=== PATIENT | male | born 1950 | race Hispanic/Latino ===

== ENCOUNTER 2020-01-01 08:50 | Inpatient (IN) | payer MEDICARE, OTHER ==
[~2020-01-01] VITALS: Ht 182.9 cm; Wt 94.1 kg
[2020-01-01] MEDS ORDERED: SODIUM CHLORIDE 0.9% 1000ML 1,000 ML IV STA (09:09)
[2020-01-01] MEDS ORDERED: CEFTRIAXONE SOD 1 GM/NS 50 ML 50 ML IV ONE (09:16)
[2020-01-01] MEDS ORDERED: AZITHROMYCIN 500MG/NS 250 ML 250 ML ONE (09:16)
[2020-01-01] MEDS ORDERED: ACETAMINOPHEN 325 MG TAB PO ONE (09:30)
[2020-01-01] MEDS ORDERED: HYDROCODONE/APAP 5MG-325MG TAB PO ONE (09:30)
[2020-01-01 09:56] LABS: BASOPHILS % 0.2 % (0.0-1.0); HEMOGLOBIN 15.1 g/dL (14.0-18.0); LYMPHOCYTES # (AUTO) 0.7 (1.0-3.2); LYMPHOCYTES % 14.5 % (18.0-39.1); MEAN CORPUSCULAR HGB CONC 33.6 g/dL (31-35); MEAN CORPUSCULAR VOLUME 80.4 fL (81-99); MONOCYTES # (AUTO) 0.3 (0.2-0.8); NEUTROPHILS # (AUTO) 3.7 (2.1-6.9); NEUTROPHILS % 77.9 % (38.7-80.0); PLATELET COUNT 153 x10e3/uL (140-360); RED CELL DISTRIBUTION WIDTH 12.8 % (11.7-14.4)
[2020-01-01] MEDS: CEFTRIAXONE SOD 1 GM/NS 50 ML 50 ML IV SCH (10:01)
[2020-01-01] MEDS: AZITHROMYCIN 500MG/NS 250 ML 250 ML IV SCH (10:01)
[2020-01-01 10:13] LABS: ALANINE AMINOTRANSFERASE 30 IU/L (0-55); ALBUMIN 3.2 g/dL (3.5-5.0); ALBUMIN/GLOBULIN RATIO 0.8 (0.8-2.0); ALKALINE PHOSPHATASE 52 IU/L (40-150); BLOOD UREA NITROGEN 13 mg/dL (7-26); BUN/CREATININE RATIO 14 (6-25); CALCIUM 8.8 mg/dL (8.4-10.2); CARBON DIOXIDE 22 mmol/L (22-29); CHLORIDE 96 mmol/L (98-107); CREATINE KINASE 74 IU/L (30-200); CREATININE, SERUM 0.92 mg/dL (0.72-1.25); EST GLOMERULAR FILTRATION RATE > 60 ML/MIN (60-); GLUCOSE 295 mg/dL (74-118); SODIUM 133 mmol/L (136-145)
[2020-01-01 10:14] LABS: INR 0.96; PROTHROMBIN TIME 13.4 seconds (11.9-14.5)
[2020-01-01 10:15] LABS: PARTIAL THROMBOPLASTIN TIME 29.8 seconds (23.8-35.5)
[2020-01-01 10:31] LABS: B-TYPE NATRIURETIC PEPTIDE2 40.3 pg/mL (0-100)
--- NOTE | 2020-01-01 10:33 | Diagnostic Imaging Report ---
EXAMINATION: CHEST SINGLE (PORTABLE) INDICATION: Shortness of breath, chest pressure COMPARISON: None FINDINGS: LINES/TUBES:None LUNGS:Mild bibasilar left greater than right patchy opacities. PLEURA:No pleural effusion or pneumothorax. MEDIASTINUM:The cardiomediastinal silhouette appears at the upper limits of normal for size. Postoperative findings of prior CABG. BONES/SOFT TISSUES:No acute osseous injury. Sternotomy wires in place. ABDOMEN:No free air under the diaphragm. IMPRESSION: Mild bibasilar left greater than right patchy opacities compatible with known history of pneumonia. Signed by: Alejandro Tai MD on 01/01/2020 10:29 AM
--- NOTE | 2020-01-01 14:45 | Emergency Department Note ---
History of Present Illnes History of Present Illness Chief Complaint: COVID PUI History of Present Illness This is a 69 year old male COVID POSITIVE SINCE LAST WK. TODAY WEAK AND SOB AND COUGH AND CHILLS. PT AAOX4. SATS 93 RA. Historian: Dry Wall Finisher/EMS Arrival Mode: [facility] FINANCIAL REPORTING DIRECTOR: See EMS Report Forestry Contractor Required: No Onset (how long ago): week(s) (1) Radiation: Reports non-radiation Severity: moderate Onset quality: gradual Timing of current episode: constant Progression: waxing and waning Chronicity: new Context: Reports recent illness Relieving factors: none Exacerbating factors: none Associated symptoms: Reports denies other symptoms Treatments prior to arrival: none Past Medical/Family History Physician Review I have reviewed the patient's past medical and family history. Any updates have been documented here. Past Medical History Recent Fever: No Clinical Suspicion of Infectio: No New/Unexplained Change in Ment: No Past Medical History: Hypertension, Diabetes Social History Smoking Cessation: Never Smoker Counseling Performed: No Alcohol Use: None Any Illegal Drug Use: No TB Exposure/Symptoms: No Physically hurt or threatened: No Family History Family history of heart diseas: No Other Last Tetanus: U Any Pre-Existing Lines (PICC,: No Last Flu: Y Last Pneumovax: Y Review of Systems Review of Systems Constitutional: Reports fever, Reports malaise EENTM: Reports no symptoms Cardiovascular: Reports no symptoms Respiratory: Reports cough, Reports dyspnea Gastrointestinal: Reports no symptoms Genitourinary: Reports no symptoms Musculoskeletal: Reports no symptoms Integumentary: Reports no symptoms Neurological: Reports no symptoms Psychological: Reports no symptoms Endocrine: Reports no symptoms Hematological/Lymphatic: Reports no symptoms Physical Exam Related Data Allergies: Coded Allergies: No Known Allergies (Unverified , 01/01/20) Triage Vital Signs Vital Signs Date Time Temp Pulse Resp B/P (MAP) Pulse Ox O2 Delivery O2 Flow Rate FiO2 01/01/20 08:51 101.0 105 16 180/88 93 Vital signs reviewed: Yes (O2 sat 93% on RA) Physical Exam CONSTITUTIONAL Constitutional: Present well-developed, Present well-nourished HENT HENT: Present normocephalic, Present atraumatic, Present oropharynx clear/tony st, Present nose normal HENT L/R: Present left ext ear normal, Present right ext ear normal EYES Eyes: Reports PERRL, Reports conjunctivae normal NECK Neck: Present ROM normal PULMONARY Pulmonary: Present effort normal, Present other (decr BS's bilat bases) CARDIOVASCULAR Cardiovascular: Present regular rhythm, Present heart sounds normal, Present capillary refill normal, Present normal rate GASTROINTESTINAL Abdominal: Present soft, Present nontender, Present bowel sounds normal GENITOURINARY Genitourinary: Present exam deferred SKIN Skin: Present warm, Present dry MUSCULOSKELETAL Musculoskeletal: Present ROM normal NEUROLOGICAL Neurological: Present alert, Present oriented x 3, Present no gross motor or sensory deficits PSYCHOLOGICAL Psychological: Present mood/affect normal, Present judgement normal Results Laboratory Result Diagram: 01/01/20 0920 01/01/20 0920 Laboratory Laboratory Tests Test 01/01/20 09:20 White Blood Count 4.69 x10e3/uL (4.8-10.8) Red Blood Count 5.60 x10e6/uL (4.3-5.7) Hemoglobin 15.1 g/dL (14.0-18.0) Hematocrit 45.0 % (38.2-49.6) Mean Corpuscular Volume 80.4 fL (81-99) Mean Corpuscular Hemoglobin 27.0 pg (28-32) Mean Corpuscular Hemoglobin Concent 33.6 g/dL (31-35) Red Cell Distribution Width 12.8 % (11.7-14.4) Platelet Count 153 x10e3/uL (140-360) Neutrophils (%) (Auto) 77.9 % (38.7-80.0) Lymphocytes (%) (Auto) 14.5 % (18.0-39.1) Monocytes (%) (Auto) 7.0 % (4.4-11.3) Eosinophils (%) (Auto) 0.0 % (0.0-6.0) Basophils (%) (Auto) 0.2 % (0.0-1.0) Neutrophils # (Auto) 3.7 (2.1-6.9) Lymphocytes # (Auto) 0.7 (1.0-3.2) Monocytes # (Auto) 0.3 (0.2-0.8) Eosinophils # (Auto) 0.0 (0.0-0.4) Basophils # (Auto) 0.0 (0.0-0.1) Absolute Immature Granulocyte (auto 0.02 x10e3/uL (0-0.1) Prothrombin Time 13.4 seconds (11.9-14.5) Prothromb Time International Ratio 0.96 Activated Partial Thromboplast Time 29.8 seconds (23.8-35.5) Sodium Level 133 mmol/L (136-145) Potassium Level 4.0 mmol/L (3.5-5.1) Chloride Level 96 mmol/L (98-107) Carbon Dioxide Level 22 mmol/L (22-29) Anion Gap 19.0 mmol/L (8-16) Blood Urea Nitrogen 13 mg/dL (7-26) Creatinine 0.92 mg/dL (0.72-1.25) Estimat Glomerular Filtration Rate > 60 ML/MIN (60-) BUN/Creatinine Ratio 14 (6-25) Glucose Level 295 mg/dL (74-118) Lactic Acid Level 1.9 mmol/L (0.5-2.0) Calcium Level 8.8 mg/dL (8.4-10.2) Total Bilirubin 0.6 mg/dL (0.2-1.2) Aspartate Amino Transf (AST/SGOT) 22 IU/L (5-34) Alanine Aminotransferase (ALT/SGPT) 30 IU/L (0-55) Alkaline Phosphatase 52 IU/L (40-150) Creatine Kinase 74 IU/L (30-200) Creatine Kinase MB 0.70 ng/mL (0-5.0) Troponin I 0.010 ng/mL (0-0.300) B-Type Natriuretic Peptide 40.3 pg/mL (0-100) Total Protein 7.3 g/dL (6.5-8.1) Albumin 3.2 g/dL (3.5-5.0) Globulin 4.1 g/dL (2.3-3.5) Albumin/Globulin Ratio 0.8 (0.8-2.0) Lab results reviewed: Yes Imaging Imaging results reviewed: Yes Impressions EXAMINATION: CHEST SINGLE (PORTABLE) INDICATION: Shortness of breath, chest pressure COMPARISON: None FINDINGS: LINES/TUBES:None LUNGS:Mild bibasilar left greater than right patchy opacities. PLEURA:No pleural effusion or pneumothorax. MEDIASTINUM:The cardiomediastinal silhouette appears at the upper limits of normal for size. Postoperative findings of prior CABG. BONES/SOFT TISSUES:No acute osseous injury. Sternotomy wires in place. ABDOMEN:No free air under the diaphragm. IMPRESSION: Mild bibasilar left greater than right patchy opacities compatible with known history of pneumonia. Signed by: Alejandro Tai MD on 01/01/2020 10:29 A Procedures 12 Lead ECG Interpretation ECG Interpretation : ECG: ECG 1 Forestry Contractor: Interpreted by ED physician Date: Jan 01, 2020 Time: 09:31 Rhythm: sinus tachycardia Rate: tachycardia (102) QRS axis: normal ST segments normal: Yes T waves normal: Yes Clinical Impression: abnormal ECG Assessment & Plan Medical Decision Making MDM check cbc, chem's, ecg, cardiacs, blood cx's, ua, covid swab, bnp, cardenas-cx's, lactic - r/o pneumonia, COVID19, sepsis, chf, renal insuff, electrolyte abnl Reassessment Reassessment admit to Dr Carvalho, consult Dr Quinonez, Dr Bejarano Assessment & Plan Final Impression: (1) Pneumonia (2) Chest pain Depart Disposition: ADMITTED Last Vital Signs Date Time Temp Pulse Resp B/P (MAP) Pulse Ox O2 Delivery O2 Flow Rate FiO2 01/01/20 14:00 79 16 127/60 96 01/01/20 08:51 101.0 Medications in the ED Azithromycin 250 ml @ ud STK-MED ONCE .ROUTE ; Start 01/01/20 at 09:16; Stop 01/01/20 at 09:11; Status DC Ceftriaxone Sodium 50 ml @ ud STK-MED ONCE IV ; Start 01/01/20 at 09:16; Stop 01/01/20 at 09:11; Status DC Sodium Chloride 1,000 ml @ 0 mls/hr Q0M STAT IV Last administered on 01/01/20at 10:36; Admin Dose 999 MLS/HR; Start 01/01/20 at 09:09; Stop 01/01/20 at 09:15; Status DC Ceftriaxone Sodium 50 ml @ 100 mls/hr Q24H IV Last administered on 01/01/20at 10:01; Admin Dose 100 MLS/HR; Start 01/01/20 at 09:15; Stop 01/08/20 at 09:14 Azithromycin 250 ml @ 200 mls/hr DAILY IV Last administered on 01/01/20at 10:01; Admin Dose 200 MLS/HR; Start 01/01/20 at 09:15; Stop 01/08/20 at 09:14 Acetaminophen 650 mg ONCE ONCE PO ; Start 01/01/20 at 09:30; Stop 01/01/20 at 10:54; Status DC Acetaminophen/ Hydrocodone Bitart 1 ea ONCE ONCE PO Last administered on 01/01/20at 10:36; Admin Dose 1 EA; Start 01/01/20 at 09:30; Stop 01/01/20 at 10:54; Status DC CAM ONOFRE MD Jan 01, 2020 14:45
[2020-01-01] MEDS ORDERED: DEXTROSE 50% SYRINGE 50 ML IV PRN (15:00)
[2020-01-01] MEDS ORDERED: MORPHINE SULFATE 2 MG/ML SYR 1ML IV PRN (15:00)
[2020-01-01] MEDS ORDERED: NITROGLYCERIN 0.4 MG SUBL SL PRN (15:00)
[2020-01-01] MEDS ORDERED: ONDANSETRON HCL INJ 2MG/ML 2ML 2 MG/ML VIAL IV PRN ×2 (15:00→19:00)
--- NOTE | 2020-01-01 15:05 | NUR ---
dr. aguilera at bedside; pt to be evaluated for home o2
[2020-01-01] MEDS: INSULIN LISPRO 100 UNIT/1 ML 3ML VIAL SQ SCH ×2 (16:30→21:00)
[2020-01-01] MEDS ORDERED: METOPROLOL SUC200 MG (18:40)
[2020-01-01] MEDS ORDERED: LOSARTAN POTAS100 MG (18:40)
[2020-01-01] MEDS ORDERED: METOPROLOL TARTRATE INJ 1 MG/ML VIAL ONE (18:49)
[2020-01-01] MEDS ORDERED: METOPROLOL TARTRATE 50 MG TAB PO ONE (19:00)
[2020-01-01] MEDS ORDERED: GUAIFENESIN/CODEINE 10 ML CUP PO PRN (19:00)
[2020-01-01] MEDS: FAMOTIDINE 20 MG/2 ML VIAL IV SCH (19:13)
[2020-01-01] MEDS ORDERED: HYDRALAZINE HCL 20 MG/ML VIAL IV PRN (19:15)
[2020-01-01 19:30] LABS: CREATINE KINASE MB 0.6 ng/mL (0-5.0)
--- NOTE | 2020-01-01 20:55 | History and Physical ---
HISTORY OF PRESENT ILLNESS: This is a 69-year-old male, who had a positive COVID test a week ago. The patient comes in with weakness, not feeling well, shortness of breath, and cough. The patient was seen in the emergency room. The patient's saturation is 93% on room air. He is doing well. The patient is telling me he was so weak yesterday, he almost passed out. He fell to the ground. Currently, he is in the emergency room, comfortable. PAST MEDICAL HISTORY: Coronary artery disease. PAST SURGICAL HISTORY: He denies. ALLERGIES: NKA. SOCIAL HISTORY: There is no smoking, drug abuse, or alcohol abuse. FAMILY HISTORY: Otherwise, unremarkable. REVIEW OF SYSTEMS: HEENT: Negative. PULMONARY: Negative. CARDIAC: Negative. : Negative. GI: Negative. PHYSICAL EXAMINATION: GENERAL: He is currently alert, oriented, does not seem to be in acute distress. VITAL SIGNS: Stable, currently afebrile. HEENT: He is not icteric. NECK: Supple. CHEST: Clear bilateral. HEART: S1 and S2. ABDOMEN: Soft. Bowel sounds present. No tenderness. EXTREMITIES: No edema. SKIN: No rash. IMPRESSION: 1. Coronavirus disease 2019. 2. Pneumonia, present on admission. The patient is not hypoxemic, so he would not qualify for dexamethasone or remdesivir. 3. The patient has been sick for more than 7 days. 4. Concern for superimposed bacterial infection. We will give him Rocephin 1 g daily and azithromycin 500 mg daily. 5. History of coronary artery disease. Discussed with the patient, we are going to observe him overnight and the patient could be discharged home with oxygen and a Z-Sarthak and supportive care. We will follow. MD SUNDAY Mcarthur/SHANNAN /[id number]
[2020-01-01] MEDS ORDERED: INSULIN GLARGINE 100 UNITS/ML VIAL SQ SCH (21:00)
[2020-01-01] MEDS ORDERED: ZOLPIDEM TARTRATE 5 MG TAB PO PRN (21:00)
[2020-01-01] MEDS: ENOXAPARIN SOD INJ 40 MG/0.4 ML SYR SC SCH (21:25)
[2020-01-01 21:47] LABS: CLARITY,URINE SL CLOUDY (CLEAR); COLOR,URINE YELLOW (YELLOW); LEUKOCYTE ESTERASE ,URINE NEGATIVE (NEGATIVE); NITRITE,URINE NEGATIVE (NEGATIVE)
[2020-01-01 21:48] LABS: BILIRUBIN,URINE SMALL (NEGATIVE); KETONES,URINE 2+ (NEGATIVE); PROTEIN,URINE DIPSTICK >=300 (NEGATIVE); URINE UROBILINOGEN 0.2 mg/dL (0.2 - 1)
[2020-01-01 22:11] LABS: BACTERIA,URINE MODERATE /HPF; EPITHELIAL CELLS,URINE FEW /LPF; MUCUS,URINE MODERATE (RARE); RBC,URINE 0-5 /HPF (0-5)
[2020-01-01 22:15] VITALS: BP 163/67
[2020-01-01 22:30] VITALS: BP_SYST 136; BP_SYST 187; BP_DIAS 67; BP_DIAS 76
--- NOTE | 2020-01-01 23:15 | Consultation ---
DATE OF CONSULTATION: Pulmonary Critical Care Consultation CHIEF COMPLAINT: Fever and cough. HISTORY OF PRESENT ILLNESS: The patient is a 69-year-old man. He has a history of a prior coronary artery bypass grafting. He also has a history of diabetes and requires insulin. He reports cough and fever for 5 to 6 days. He also notes some dyspnea. He does not complain of nausea or vomiting. He has not had any chest pain. PAST SURGICAL HISTORY: Status post CABG. PAST MEDICAL HISTORY: 1. Diabetes. 2. Hypertension. 3. Coronary artery disease. SOCIAL HISTORY: The patient is not a smoker. He is not a drinker. FAMILY HISTORY: The patient is not reporting any significant family history. ALLERGIES: THERE ARE NO KNOWN DRUG ALLERGIES. REVIEW OF SYSTEMS: The patient has fevers as well as headache and cough. He does have some dyspnea. There is no chest pain. He has no abdominal pain. There is no nausea or vomiting. He has no leg edema. PHYSICAL EXAMINATION: VITAL SIGNS: The patient is afebrile, blood pressure is 195/85, pulse ox is 95% on room air, and pulse is 87. HEENT: Shows no facial swelling or erythema. CARDIAC: Reveals regular rate and rhythm with normal S1 and S2. LUNGS: Auscultation of lungs reveals clear breath sounds bilaterally. There is no wheezing. ABDOMEN: Soft and nontender. There is no rebound or guarding. EXTREMITIES: Show no leg edema or calf tenderness. There is no cyanosis or clubbing. SKIN: Shows no rashes. NEUROLOGICAL: Shows no focal abnormalities. LABORATORY DATA: Sodium is 133 and BUN to creatinine ratio is 13 and 0.92. White blood cell count is 6.7, hemoglobin is 15.1, and platelet count is 153. RADIOGRAPHIC DATA: Chest x-ray shows bilateral infiltrates consistent with viral pneumonia. IMPRESSION: 1. Viral pneumonia and coronavirus disease 2019 infection. 2. Diabetes. 3. Coronary artery disease. 4. Hypertension. PLAN: 1. Continue Rocephin and Zithromax. 2. Judicious use of IV fluids. 3. Tylenol. 4. Lovenox. 5. Monitor and control blood sugars. 6. Oxygen as needed. Rad Quinonez MD [facility]/MODL /[id number]
[2020-01-01] MEDS: ACETAMINOPHEN 325 MG TAB PO PRN (23:26)
[2020-01-02 00:30] VITALS: BP 166/67
[2020-01-02] MEDS: SODIUM CHLORIDE 0.9% 1000ML 1,000 ML IV SCH ×2 (00:39→05:21)
[2020-01-02] MEDS: ACETAMINOPHEN 325 MG TAB PO PRN (01:05)
[2020-01-02] MEDS ORDERED: FARXIGA10 MG PO (02:26)
[2020-01-02] MEDS ORDERED: ASPIRIN EC81 MG PO (02:26)
[2020-01-02] MEDS ORDERED: FLONASE ALLERG9.9 ML (02:26)
[2020-01-02] MEDS ORDERED: METFORMIN HCL500 MG PO (02:26)
[2020-01-02] MEDS: FAMOTIDINE 20 MG/2 ML VIAL IV SCH ×2 (02:47→15:00)
[2020-01-02 04:00] VITALS: BP 173/86
[2020-01-02 05:40] LABS: CREATINE KINASE MB 0.5 ng/mL (0-5.0)
[2020-01-02 05:43] LABS: HEMATOCRIT 40.7 % (38.2-49.6); HEMOGLOBIN 13.5 g/dL (14.0-18.0); LYMPHOCYTES # (AUTO) 0.7 (1.0-3.2); LYMPHOCYTES % 12.8 % (18.0-39.1); MEAN CORPUSCULAR HEMOGLOBIN 27.3 pg (28-32); MEAN CORPUSCULAR HGB CONC 33.2 g/dL (31-35); MEAN CORPUSCULAR VOLUME 82.4 fL (81-99); MONOCYTES # (AUTO) 0.3 (0.2-0.8); MONOCYTES % 5.1 % (4.4-11.3); NEUTROPHILS # (AUTO) 4.2 (2.1-6.9); NEUTROPHILS % 81.7 % (38.7-80.0); PLATELET COUNT 142 x10e3/uL (140-360); RED BLOOD COUNT 4.94 x10e6/uL (4.3-5.7)
[2020-01-02] MEDS ORDERED: LOSARTAN POTASSIUM 100 MG TAB PO SCH (06:00)
[2020-01-02] MEDS ORDERED: DEXAMETHASONE SOD PHOS 10 MG/1 ML VIAL IV SCH (06:00)
[2020-01-02 06:16] LABS: ALANINE AMINOTRANSFERASE 24 IU/L (0-55); ALBUMIN 2.6 g/dL (3.5-5.0); ALBUMIN/GLOBULIN RATIO 0.7 (0.8-2.0); ALKALINE PHOSPHATASE 39 IU/L (40-150); ANION GAP 16.7 mmol/L (8-16); BLOOD UREA NITROGEN 13 mg/dL (7-26); BUN/CREATININE RATIO 17 (6-25); CALCIUM 7.8 mg/dL (8.4-10.2); CARBON DIOXIDE 20 mmol/L (22-29); CHLORIDE 99 mmol/L (98-107); CHOLESTEROL 217 MD/DL (0-199); CREATININE, SERUM 0.76 mg/dL (0.72-1.25); EST GLOMERULAR FILTRATION RATE > 60 ML/MIN (60-); GLUCOSE 238 mg/dL (74-118); HDL CHOLESTEROL 24 MG/DL (40-60); LDL CHOLESTEROL 165 MG/DL (60-130); POTASSIUM 3.7 mmol/L (3.5-5.1); SODIUM 132 mmol/L (136-145); TRIGLYCERIDES 139 MG/DL (0-149)
--- NOTE | 2020-01-02 07:00 | NUR ---
RECEIVED SHIFT REPORT FROM OFF GOING NIGHT NURSE. PATIENT IN STABLE CONDITION, NO S/S OF DISTRESS NOTED. NO PAIN VOICED. TELEMETRY APPLIED. IV FLUIDS INFUSING, SITE ASYMPTOMATIC AND PATENT TRANSPARENT DRESSING APPLIED C/D/I. BED IN LOWEST POSTION AND LOCKED. CALL LIGHT WITHIN REACH.
[2020-01-02 07:50] VITALS: BP 169/78
[2020-01-02 08:08] VITALS: BP 169/78
[2020-01-02] MEDS: CEFTRIAXONE SOD 1 GM/NS 50 ML 50 ML IV SCH (08:35)
[2020-01-02] MEDS: ENOXAPARIN SOD INJ 40 MG/0.4 ML SYR SC SCH (08:35)
[2020-01-02] MEDS: INSULIN LISPRO 100 UNIT/1 ML 3ML VIAL SQ SCH ×2 (08:36→12:12)
[2020-01-02] MEDS: AZITHROMYCIN 500MG/NS 250 ML 250 ML IV SCH (09:00)
[2020-01-02] MEDS ORDERED: ASPIRIN 81 MG ENTERIC COATED PO SCH (09:00)
[2020-01-02] MEDS ORDERED: HYDRALAZINE HCL 25 MG TAB PO PRN (10:00)
[2020-01-02] MEDS ORDERED: METOPROLOL TARTRATE 50 MG TAB PO SCH (10:30)
--- NOTE | 2020-01-02 10:30 | Diagnostic Imaging Report ---
EXAMINATION: CHEST SINGLE (PORTABLE) INDICATION: Pneumonia COMPARISON: Chest radiograph of 01/01/2020 FINDINGS: LINES/TUBES:None LUNGS:Unchanged bibasilar opacities. PLEURA:No pleural effusion or pneumothorax. MEDIASTINUM:The cardiomediastinal silhouette appears unchanged in size and shape. Postoperative findings of prior CABG. BONES/SOFT TISSUES:No acute osseous injury. Sternotomy wires in place. ABDOMEN:No free air under the diaphragm. IMPRESSION: No significant interval change. Signed by: Alejandro Tai MD on 01/02/2020 10:27 AM
--- NOTE | 2020-01-02 11:02 | History and Physical ---
CONSULTANTS: 1. Rad Quinonez MD. 2. Bree Bejarano MD. CHIEF COMPLAINT: Atypical chest pain. Superimposed pneumonia. COVID-19 positive. HISTORY OF PRESENT ILLNESS: A 69-year-old male was positive previously with COVID-19. The patient stated that he was having increasing weakness with cough and fever for the past 5-6 days. He has also had some increasing shortness of breath. The patient did not complain of any nausea and vomiting. Chest pain is atypical when he coughs. The patient is stable. He is comfortable at this time. His room air saturation is 93%. PAST MEDICAL HISTORY: Coronary artery disease with previous bypass graft surgery. Diabetes type 2, hypertension, coronary artery disease and dyslipidemia. PAST SURGICAL HISTORY: As above. SOCIAL HISTORY: The patient does not smoke or use alcohol. No regular drugs. ALLERGIES: NO KNOWN ALLERGIES. HOME MEDICATIONS: 1. Aspirin. 2. Farxiga. 3. Flonase. 4. Losartan. 5. Metformin. 6. Metoprolol succinate. PHYSICAL EXAMINATION: VITAL SIGNS: Temperature is 103, blood pressure is 169/78, pulse rate is 89, respiration 18. GENERAL: The patient is not in acute distress. He is awake. HEENT: Normocephalic and atraumatic. Anicteric. NECK: Supple grossly. PULMONARY: Diminished breath sounds bilaterally at bases. CARDIOVASCULAR: S1, S2. Tachycardia. ABDOMEN: Soft. EXTREMITIES: No cyanosis or edema. NEUROLOGIC: No focal deficit. LABORATORY DATA: Sodium is 133, potassium 4, chloride 96, bicarb is 19, BUN is 13, creatinine 0.9 glucose 295. WBC is 4.7, hemoglobin 15, hematocrit 45, and platelets 153. Urinalysis cloudy, but clear urine. His serology tests detected positive COVID-19. His chest x-ray showed that the patient has mild basilar left greater than right patchy opacity compatible with known history of pneumonia. IMPRESSION: 1. Possible superimposed pneumonia on coronavirus disease-2019 positive. 2. High fever 103. 3. Generalized weakness. Shortness of breath. PLAN: Continue with current management by Dr. Bejarano and Dr. Rad Quinonez. I would like to go ahead and admit this patient with his fever. Continue antibiotic treatment. Steroids. DVT prophylaxis. We will set up oxygen when the patient to go home. The patient will be admitted in the meantime. Control of blood sugar because he is on IV Decadron. MD DIANELYS Camarena/SHANNAN /[id number]
[2020-01-02 11:23] VITALS: BP 166/81
[2020-01-02] MEDS ORDERED: INSULIN LISPRO 100 UNIT/1 ML 3ML VIAL SQ SCH (11:30)
--- NOTE | 2020-01-02 11:33 | Progress Note ---
DATE: SUBJECTIVE: Discussed with Dr. Bejarano in detail. The patient is seen and evaluated. REVIEW OF SYSTEMS: States that he is doing better. Started having diarrhea today, off oxygen supplement and breathing improved. PHYSICAL EXAMINATION: VITAL SIGNS: Temperature 99, pulse 89, respirations 17, and blood pressure was 169/78. The patient is saturating at 98% at room air. GENERAL: Alert and oriented. No acute distress. CV: S1 and S2. CHEST: Equal expansion. Decreased breath sounds. No acute distress. ABDOMEN: Soft and nontender. No distention. HEENT: Moist. No pallor. No JVD. EXTREMITIES: No edema. Moves all. MEDICATIONS: Reviewed and from ID point of view, the patient is on Lovenox, Rocephin, dexamethasone, and Zithromax. LABORATORY STUDIES: White count of 5.08, hemoglobin 13.5, and platelet 142. Sodium 132, potassium 3.7, and creatinine 0.76. Serology; coronavirus PCR positive, 12/31. Blood culture and urine culture negative so far from 12/31. RADIOLOGY STUDIES: Chest x-ray from today showed no significant interval change. ASSESSMENT AND PLAN: 1. COVID-19. 2. Concern superimposed bacterial infection of the lungs. 3. Coronary artery disease. 4. Started having diarrhea. 5. Diarrhea concern, secondary to COVID. 6. Appetite is okay. 7. Continue with antibiotics and dexamethasone as planned. We will add zinc and vitamin C. We will monitor the patient clinically and follow with the labs. Dictated by Nabor Ugarte PA-C (Al) Bree Bejarano MD /MODL /[id number]
[2020-01-02] MEDS ORDERED: ZINC SULFATE 220 MG CAP PO SCH (12:00)
[2020-01-02] MEDS ORDERED: ASCORBIC ACID 500 MG TAB PO SCH (12:00)
[2020-01-02 15:29] VITALS: BP 140/67
--- NOTE | 2020-01-02 17:05 | NUR ---
ORDER FOR HOME 02 AT PT'S REQUEST 02 SATS 95% WITH AMBULATION DOES NOT QUALIFY FOR 02 BUT WANTS TO PAY FOR IT CHOSE [facility] 120/MONTH FOR CONCENTRATOR AND TANKS PT AGREEABLE AND HAS A CREDIT CARD TO PAY FOR IT CALLED SWATHI WITH [facility] AND NOTIFIED HIM OFFICE WILL CALL PT ON HIS CELL PHONE BEFORE DISCHARGE TO SECURE PAYMENT PROVIDED PT WITH PORTABLE 02 TANK AND EXPLAINED TO HIM TO CALL [facility] WHEN HE GETS HOME FOR CONCENTRATOR DELIVERY PT UNDERSTAND AND AGREES [facility]INA PH: [phone] FAX: [phone]
[2020-01-02] MEDS ORDERED: ONDANSETRON HCL 4 MG ORAL DISINTEGRATING TAB PO PRN (17:30)
--- NOTE | 2020-01-02 17:53 | NUR ---
PATIENT DISCHARGED HOME WITH HOME OXYGEN @ 2 LPM/NC. PATIENT OFF THE UNIT @ 1746 VIA WHEELCHAIR ACCOMPANIED BY PCT TO THE LOBBY. PATIENT IN STABLE CONDITION, NO S/S OF DISTRESS NOTED. IV ACCESS REMOVED WITH TIP INTACT. ALL PERSONAL ITEMS TAKEN WITH THE PATIENT. DISCHARGE TEACHING AND INSTRUCTION GIVEN TO THE PATIENT. PATIENT VERBALIZED UNDERSTANDING. PERCEPTIONS AND PAPERWORK GIVEN TO THE PATIENT.
--- NOTE | 2020-01-02 18:00 | Progress Note ---
DATE: SUBJECTIVE: The patient feels better after receiving some IV fluids. He still has some dyspnea and some cough. He is not complaining of nausea or vomiting. PHYSICAL EXAMINATION: VITAL SIGNS: The patient is afebrile. The vital signs are stable. HEENT: Shows no facial swelling or erythema. CARDIAC: Reveals regular rate and rhythm with normal S1, S2. LUNGS: Auscultation of lungs reveals rhonchorous breath sounds bilaterally. There is no wheezing. ABDOMEN: Soft and nontender. There is no rebound or guarding. EXTREMITIES: Shows no leg edema or calf tenderness. LABORATORY DATA: BUN, creatinine, electrolytes within normal limits. CBC is within normal limits. IMPRESSION: 1. COVID-19 and viral pneumonia. 2. Diabetes. 3. Coronary artery disease. 4. Hypertension. PLAN: 1. Continue antibiotics. 2. Monitor electrolytes, BUN and creatinine. 3. Physical therapy. 4. Possible discharge home tomorrow. MD VANNA Costa/SHANNAN /[id number]
[2020-01-03] MEDS ORDERED: AZITHROMYCIN 250 MG TAB PO SCH (09:00)
== END 2020-01-02 17:48 | disposition home or self-care (01) | DRG 177 ==
LOC: ER 09:02 → ERHOLD 09:14 → IMCU 22:57 → OBSVTOIN 01-02 09:56
PROVIDERS: ADMIT Internal Medicine; ATTEND Internal Medicine
DX: U07.1 COVID-19 (principal); J12.89 Other viral pneumonia; J15.8 Pneumonia due to other specified bacteria; A08.39 Other viral enteritis; I25.10 Atherosclerotic heart disease of native coronary artery without angina pectoris; E11.9 Type 2 diabetes mellitus without complications; Z95.1 Presence of aortocoronary bypass graft; E78.5 Hyperlipidemia, unspecified
CPT/HCPCS: 36415; 71045; 80053; 80061; 81001; 82550; 82553; 82948; 83605; 83880; 84484; 85025; 85610; 85730; 87040; 87086; 87635; 93005; 93306; 99284; G0378; J0360; J0456; J0696; J1100; J1650; J7030